=== PATIENT | female | born 1975 | race Caucasian/White ===

== ENCOUNTER → 2018-05-09 10:37 | Outpatient (CLI) | payer MEDICARE | END | disposition home or self-care (01) | LOC: D.MRI 10:37 | DX: M75.102 Unspecified rotator cuff tear or rupture of left shoulder, not specified as traumatic (principal) ==

== ENCOUNTER → 2018-07-25 11:07 | Outpatient (CLI) | payer MEDICARE | END | disposition home or self-care (01) | LOC: D.MRI 11:07 | DX: M75.102 Unspecified rotator cuff tear or rupture of left shoulder, not specified as traumatic (principal) ==

== ENCOUNTER → 2018-08-23 12:55 | Outpatient (CLI) | payer MEDICARE | END | disposition home or self-care (01) | LOC: D.CT 12:55 | DX: Z87.442 Personal history of urinary calculi (principal) ==

== ENCOUNTER 2018-09-01 07:49 | Day surgery (SDC) | payer MEDICARE ==
[~2018-09-01] VITALS: Ht 162.6 cm; Wt 78.2 kg
[~2018-09-01 07:49] MED LIST: AMBIEN10 MG PO; IMITREX100 MG PO; KLONOPIN1 MG PO; NAPROXEN250 MG PO; OMEPRAZOLE40 MG PO; PHENERGAN25 M1 PO; PROZAC40 MG PO; TOPAMAX200 MG; TRAZODONE HCL150 MG PO; ZANAFLEX4 MG PO
[2018-09-01 08:21] LABS: HEMATOCRIT 40.3 % (36.0-48.0); HEMOGLOBIN 13.7 g/dL (12-16); MCH 31.6 pg (26.0-34.0); MCV 92.9 fL (80.0-100.0); MEAN PLATELET VOLUME 10.2 fL (7.4-10.4); RBC 4.34 10x6/uL (4.00-5.40); RDW 12.8 % (11.5-14.5); WBC 9.1 10x3/uL (4.8-10.8)
[2018-09-01 08:54] VITALS: BP 102/53; Ht 162.6 cm; Wt 78.2 kg
--- NOTE | 2018-09-01 10:45 | NUR ---
REC'D FROM SURGERY. FAMILY AT BEDSIDE. LEMON ALLAKAKET SODA GIVEN TO PT. INSTRUCTED TO TURN FROM SIDE TO SIDE AND HOLD MEDICATION IN BLADDER LONG POSSIBLE BUT AT LEAST 15 MINUTES.
--- NOTE | 2018-09-01 11:10 | NUR ---
AMBULATED TO BATHROOM AND VOIDED WITHOUT DIFFICULTY. FL TRAY BROUGHT TO PT.
--- NOTE | 2018-09-01 11:30 | NUR ---
TOLERATED DIET. IV DC'D WITH CATHETER INTACT. WRITTEN AND VERBAL DC INST. GIVEN TO PT ALONG WITH F/U APPT. VERBALIZED UNDERSTANDING.
--- NOTE | 2018-09-01 11:40 | NUR ---
DC'D HOME WITH FAMILY VIA PRIVATE VEHICLE. TAKEN TO VEHICLE VIA WC. STABLE AT TIME OF DC.
--- NOTE | 2018-09-01 12:56 | OP ---
PATIENT NAME: MALU DEL REAL MEDICAL RECORD: [id number] :75 LOCATION:D.OPS ADMISSION DATE: SURGEON: ANDRE PIÑA MD DATE OF OPERATION: 09/01/2018 SURGEON: Andre Piña MD ANESTHESIA: TIVA by Dr. Juan Smyth. DIAGNOSIS: Interstitial cystitis. PROCEDURES: Cystoscopy and intravesical Rimso installation. FINDINGS: Cystocele grade II on the [place]-Walker scale. Single ureteral orifices bilaterally. No bladder tumors. Diffuse bladder inflammation. BLOOD LOSS: None. CLINICAL HISTORY: This is a 42-year-old female, who is status post hysterectomy and she has ongoing issues with urinary incontinence. She has incontinence with movement, sneezing and laughing. She also has urge incontinence. She has issues with urinary frequency, suprapubic pain, dysuria and right flank pain. I suspect that she has interstitial cystitis as well as stress and urge urinary incontinence. She comes today for cystoscopy and intravesical Rimso instillation. SHE IS ALLERGIC TO DROPERIDOL, KEFLEX, MORPHINE, NEURONTIN, REGLAN AND ZOFRAN. 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 DESCRIPTION OF PROCEDURE: The patient was given IV sedation. She was then placed in the dorsal lithotomy position and prepped and draped. A 17-Kazakh cystoscope with 30-degree lens was used for visualization. Findings are as outlined above. The bladder was then emptied through the cystoscope and the scope was removed. A 16-Kazakh red rubber catheter was inserted into the bladder and 50 mL of Rimso solution was instilled into the bladder. The patient will hold this for about 15 minutes and then void it out. She will be seeing me in the office in the New Year to have the following Rimso treatments completed. TRANSINT:[id number] Voice Confirmation ID: [id number] DOCUMENT ID: [id number] ANDRE PIÑA MD at 1256 CC: [id number] DICTATION DATE: 09/01/18 1044 [facility] BENDER: 09/01/18 1255 [facility] 09/01/18 [place] [address]
== END 2018-09-01 11:40 | disposition home or self-care (01) ==
LOC: D.OPS 07:49 → D.PAN 10:15 → D.OPS 10:15 → D.PAN 10:30 → D.OPS 10:30
PROVIDERS: Anesthesiology
DX: N30.10 Interstitial cystitis (chronic) without hematuria (principal); N81.10 Cystocele, unspecified; Z01.812 Encounter for preprocedural laboratory examination

== ENCOUNTER 2019-02-26 17:05 | Emergency (ER) | payer MEDICARE ==
[~2019-02-26] VITALS: Ht 162.6 cm; Wt 75.5 kg
[2019-02-26 17:06] VITALS: BP 138/80; Ht 162.6 cm; Wt 75.5 kg
[2019-02-26] MEDS ORDERED: TYLENOL W/CODEI1 TAB PO (20:20)
== END 2019-02-26 21:05 | disposition home or self-care (01) ==
LOC: D.ER 17:05
DX: S93.402A Sprain of unspecified ligament of left ankle, initial encounter (principal); X50.1XXA Overexertion from prolonged static or awkward postures, initial encounter; Y93.89 Activity, other specified; Y92.89 Other specified places as the place of occurrence of the external cause

== ENCOUNTER → 2019-03-07 14:01 | Outpatient (CLI) | payer MEDICARE ==
[2019-02-26 17:06] VITALS: BMI 28.5
[~2019-03-07 14:01] MED LIST changes: +TYLENOL W/CODEI1 TAB PO
== END | disposition home or self-care (01) ==
LOC: D.MRI 14:01
PROVIDERS: ATTEND Nurse Practitioner Family
DX: M79.672 Pain in left foot (principal)

== ENCOUNTER → 2019-05-24 10:02 | Outpatient (CLI) | payer MEDICARE ==
[2019-02-26 17:06] VITALS: BMI 28.5
== END | disposition home or self-care (01) ==
LOC: D.MRI 10:02
PROVIDERS: ATTEND Nurse Practitioner Family
DX: M25.562 Pain in left knee (principal)

== ENCOUNTER 2021-03-07 17:04 | Emergency (ER) | payer OTHER ==
[~2021-03-07] VITALS: Ht 162.6 cm; Wt 87.3 kg
[2021-03-07 17:21] VITALS: Ht 162.6 cm; Wt 87.3 kg
[2021-03-07 21:20] VITALS: BP 117/61
== END 2021-03-07 21:20 | disposition home or self-care (01) ==
LOC: D.ER 17:04
DX: S06.0X9A Concussion with loss of consciousness of unspecified duration, initial encounter (principal); S16.1XXA Strain of muscle, fascia and tendon at neck level, initial encounter; G43.909 Migraine, unspecified, not intractable, without status migrainosus; S43.402A Unspecified sprain of left shoulder joint, initial encounter; V89.2XXA Person injured in unspecified motor-vehicle accident, traffic, initial encounter; Y93.9 Activity, unspecified; Y92.9 Unspecified place or not applicable; K21.9 Gastro-esophageal reflux disease without esophagitis